=== PATIENT | female | born 1995 | race American Indian/Alaskan Native ===

== ENCOUNTER 2017-02-04 20:54 | Emergency (ER) | payer SELFPAY ==
[2017-02-04 22:08] VITALS: BP 109/74
[2017-02-04 22:44] LABS: Basophils % (Auto) 0.3 % (0.0-1.8); Eosinophils % (Auto) 0.6 % (0.0-4.3); Hemoglobin 14.2 gm/dl (10.1-14.3); Mean Corpuscular HGB Conc 33 % (30-34); Mean Corpuscular Hemoglobin 29 pg (28-32); Mean Corpuscular Volume 88 fl (79-97); Platelet Count 216 K/mm3 (140-440); Red Blood Count 4.87 M/mm3 (3.65-5.03); Red Cell Distribution Width 14.3 % (13.2-15.2); White Blood Count 10.9 K/mm3 (4.5-11.0)
[2017-02-04 22:56] LABS: Bilirubin,Urine NEG (Negative); Blood,Urine NEG (Negative); Ketones,Urine NEG (Negative); Leukocyte Esterase,Urine NEG (Negative); Mucus,Urine 1+ /HPF; Nitrite,Urine NEG (Negative); Protein,Urine <15 mg/dL mg/dL (Negative)
[2017-02-04 23:06] LABS: Anion Gap 17 mmol/L; BUN/Creatinine Ratio 17.14; Blood Urea Nitrogen 12 mg/dL (7-17); Carbon Dioxide 23 mmol/L (22-30); Chloride 100.9 mmol/L (98-107); Glucose 88 mg/dL (65-100); Potassium 3.9 mmol/L (3.6-5.0); Sodium 137 mmol/L (137-145)
== END 2017-02-04 23:33 | disposition left against medical advice (07) ==
LOC: ED 20:54
DX: R51 Headache (principal); M54.5 Low back pain; Z53.21 Procedure and treatment not carried out due to patient leaving prior to being seen by health care provider
CPT/HCPCS: 36415; 80048; 81001; 81025; 82962; 85025; 93005; 93010

== ENCOUNTER 2017-04-10 10:46 | Emergency (ER) | payer SELFPAY ==
[2017-04-10 11:02] VITALS: BP 118/94
[2017-04-10] MEDS ORDERED: NACL 0.9% 1000 ML 1,000 ML IV ONE (12:25)
[2017-04-10 12:40] LABS: Bilirubin,Urine NEG (Negative); Blood,Urine SM (Negative); Ketones,Urine TR mg/dL (Negative); Leukocyte Esterase,Urine MOD (Negative); Mucus,Urine 1+ /HPF; Nitrite,Urine NEG (Negative)
[2017-04-10 12:45] LABS: WBC,Urine > 182.0 /HPF (0.0-6.0)
[2017-04-10] MEDS ORDERED: ROCEPHIN/NS 1 GM/50 ML 1 GM/50 ML BAG IV ONE (13:01)
--- NOTE | 2017-04-10 13:06 | Emergency Department Report ---
ED General Adult HPI - General Chief complaint: Upper Respiratory Infection Stated complaint: ODETTE/CONGESTION/WEAK/VOMITING Time Seen by Provider: 04/10/17 12:14 Source: patient Mode of arrival: Ambulatory Limitations: No Limitations - History of Present Illness Initial comments: PT has multiple complaints. PT states yesterday she started to feel sick. PT states she had discomfort urinating and her mother told her it was because she drank too much soda at the family reunion. PT states that her mother told her to drink more cranberry juice. PT reports dysuria today and urinary retention. PT also c/o sinus congestion, pressure, stuffy nose, abd pain, headache and states she has been vomiting and having L flank pain. PT states she took Tylenol at 0600 for her symptoms but no improvement. MD Complaint: L flank pain -: Gradual, days(s) (2) Location: face (sinus, nose ), abdomen (L flank) Severity scale (0 -10): 10 Quality: constant Consistency: constant Improves with: none Worsens with: eating, other (urination) Associated Symptoms: cough, fever/chills, headaches, loss of appetite, malaise, nausea/vomiting, weakness (generalized ). denies: syncope - Related Data Home Medications Medication Instructions Recorded Confirmed Last Taken Valtrex 1 mg PO DAILY 12/02/15 12/02/15 12/02/15 10:00 1 Previous Rx's Medication Instructions Recorded Last Taken Type Ibuprofen [Motrin] 600 mg PO Q8H PRN #15 tablet 04/10/17 Unknown Rx Nitrofurantoin [place]/M-Cryst 100 mg PO Q12HR #14 capsule 04/10/17 Unknown Rx [Macrobid CAP] Ondansetron [Zofran Odt] 4 mg PO Q8HR PRN #10 tab.rapdis 04/10/17 Unknown Rx Phenazopyridine [Pyridium] 200 mg PO TID PRN #5 tab 04/10/17 Unknown Rx Allergies Allergy/AdvReac Type Severity Reaction Status Date / Time azithromycin Allergy Rash Verified 06/01/15 11:38 ED Review of Systems ROS: Stated complaint: ODETTE/CONGESTION/WEAK/VOMITING Other details as noted in HPI Comment: All other systems reviewed and negative Constitutional: chills, fever (subjective ) ENT: as per HPI, throat pain, congestion. denies: ear pain Respiratory: cough Cardiovascular: denies: chest pain Gastrointestinal: abdominal pain, nausea, vomiting Genitourinary: dysuria, abnormal menses (last cycle only lasted 4 hours), other (urinary retention ). denies: frequency Neurological: headache ED Past Medical Hx - Past Medical History Previous Medical History?: Yes Hx Hypertension: No Hx Congestive Heart Failure: No Hx Diabetes: No Hx Deep Vein Thrombosis: No Hx Renal Disease: No Hx Sickle Cell Disease: No Hx Headaches / Migraines: Yes Hx Seizures: No Hx Kidney Stones: Yes (when she was ) Hx Asthma: No Hx COPD: No Hx HIV: No Additional medical history: gestational diabetes - Surgical History Past Surgical History?: Yes Additional Surgical History: in 2008 - Family History Family history: no significant - Social History Smoking Status: Never Smoker Substance Use Type: None - Medications Home Medications: Home Medications Medication Instructions Recorded Confirmed Last Taken Type Valtrex 1 mg PO DAILY 12/02/15 12/02/15 12/02/15 10:00 History 1 Ibuprofen [Motrin] 600 mg PO Q8H PRN #15 tablet 04/10/17 Unknown Rx Nitrofurantoin [place]/M-Cryst 100 mg PO Q12HR #14 capsule 04/10/17 Unknown Rx [Macrobid CAP] Ondansetron [Zofran Odt] 4 mg PO Q8HR PRN #10 tab.rapdis 04/10/17 Unknown Rx Phenazopyridine [Pyridium] 200 mg PO TID PRN #5 tab 04/10/17 Unknown Rx ED Physical Exam - General Limitations: No Limitations General appearance: alert, anxious (pt crying ), obese - Head Head exam: Present: atraumatic, normocephalic, normal inspection - Eye Eye exam: Present: PERRL, EOMI, other (pt crying ). Absent: nystagmus, periorbital swelling, periorbital tenderness - ENT ENT exam: Present: normal orophraynx, TM's normal bilaterally, normal external ear exam, other (nasal congestion noted. ) - Neck Neck exam: Present: normal inspection, tenderness. Absent: full ROM, lymphadenopathy - Respiratory Respiratory exam: Present: normal lung sounds bilaterally. Absent: respiratory distress, wheezes, chest wall tenderness - Cardiovascular Cardiovascular Exam: Present: regular rate, normal rhythm, normal heart sounds - GI/Abdominal GI/Abdominal exam: Present: soft, normal bowel sounds. Absent: tenderness, guarding, rebound - Extremities Exam Extremities exam: Present: normal inspection, full ROM - Back Exam Back exam: Present: normal inspection, full ROM, tenderness, CVA tenderness (L) . Absent: CVA tenderness (R), vertebral tenderness - Neurological Exam Neurological exam: Present: alert, oriented X3 - Psychiatric Psychiatric exam: Present: normal affect, normal mood - Skin Skin exam: Present: warm, dry ED Course Vital Signs 04/10/17 11:00 Temperature 97.9 F Pulse Rate 77 Respiratory 18 Rate Blood Pressure 118/94 O2 Sat by Pulse 100 Oximetry - Reevaluation(s) Reevaluation #1: 04/10/17 13:07 PT aware of ua and test. PT aware of plan of care. Reevaluation #2: 04/10/17 15:54 PT aware of lab, xr, and us results. PT aware of plan of care. PT has only received 1/2 L of NS. Will dispo after NS infusion complete. Reevaluation #3: 04/10/17 18:36 PT states she has urge to urinate but could not empty bladder. RN performed bladder scan and she had less than 10mls of urine in bladder. PT aware of dx and plan of care. Reevaluation #4: 04/10/17 18:40 pt tolerating po fluids - Pulse Oximetry Interpretation Digit-Finger Initial Pulse Oximetry Readin Actions Taken: none ED Medical Decision Making - Lab Data Result diagrams: 04/10/17 12:34 04/10/17 12:34 Laboratory Results - last 24 hr 04/10/17 04/10/17 04/10/17 11:27 12:34 12:34 WBC 9.3 RBC 5.02 Hgb 14.8 H Hct 44.5 H MCV 89 MCH 30 MCHC 33 RDW 13.5 Plt Count 190 Lymph % (Auto) 17.9 [place] % (Auto) 8.0 H Eos % (Auto) 0.4 Baso % (Auto) 0.4 Lymph # 1.7 [place] # 0.7 Eos # 0.0 Baso # 0.0 Seg Neutrophils % 73.3 H Seg Neutrophils # 6.8 Sodium 139 Potassium 3.7 Chloride 101.5 Carbon Dioxide 20 L Anion Gap 21 BUN 13 Creatinine 0.7 Estimated GFR > 60 BUN/Creatinine Ratio 18.57 Glucose 75 Calcium 9.3 Total Bilirubin 0.50 AST 17 ALT 21 Alkaline Phosphatase 112 Total Protein 8.0 Albumin 4.3 Albumin/Globulin Ratio 1.2 Lipase 18 Urine Color Yellow Urine Turbidity Slightly-cloudy Urine pH 6.0 Ur Specific [place] 1.020 Urine Protein 30 mg/dl Urine Glucose (UA) Neg Urine Ketones Tr Urine Blood Sm Urine Nitrite Neg Ur Reducing Substances Not Reportable Urine Bilirubin Neg Urine Ictotest Not Reportable Urine Urobilinogen 2.0 Ur Leukocyte Esterase Mod Urine WBC (Auto) > 182.0 H Urine RBC (Auto) 38.0 U Epithel Cells (Auto) 11.0 Urine Mucus 1+ Urine HCG, Qual Negative - Radiology Data Radiology results: report reviewed CXR - Nap US renal - NAP - Differential Diagnosis uti, , influeza. strep, pna Critical Care Time: No Critical care attestation.: If time is entered above; I have spent that time in minutes in the direct care of this critically ill patient, excluding procedure time. ED Disposition Clinical Impression: Nausea, URI with cough and congestion UTI (urinary tract infection) Qualifiers: Urinary tract infection type: site unspecified Hematuria presence: with hematuria Qualified Code(s): N39.0 - Urinary tract infection, site not specified Disposition: TO HOME OR SELFCARE Is pt being admited?: No Does the pt Need Aspirin: No Condition: Stable Instructions: Urinary Tract Infection in Women (ED), Upper Respiratory Infection (ED) Additional Instructions: Finish all of your antibiotics Follow up with PCP in 2 days IF your back pain worsens, you are unable to tolerate your antibiotics, or you feel worse, return to the ED for re-evaluation Prescriptions: Ibuprofen [Motrin] 600 mg PO Q8H PRN #15 tablet PRN Reason: Pain Nitrofurantoin [place]/M-Cryst [Macrobid CAP] 100 mg PO Q12HR #14 capsule Ondansetron [Zofran Odt] 4 mg PO Q8HR PRN #10 tab.rapdis PRN Reason: Nausea Phenazopyridine [Pyridium] 200 mg PO TID PRN #5 tab PRN Reason: Pain Referrals: PRIMARY MD LISA [Primary Care Provider] - 3-5 Days TWAN BARRERA MD [Staff Physician] - 3-5 Days Forms: Work/School Release Form(ED) Time of Disposition: 18:39
[2017-04-10] MEDS ORDERED: MORPHINE IV ONE (13:09)
[2017-04-10] MEDS ORDERED: ZOFRAN IV ONE (13:09)
[2017-04-10 13:12] LABS: Basophils % (Auto) 0.4 % (0.0-1.8); Eosinophils % (Auto) 0.4 % (0.0-4.3); Hematocrit 44.5 % (30.3-42.9); Hemoglobin 14.8 gm/dl (10.1-14.3); Mean Corpuscular HGB Conc 33 % (30-34); Mean Corpuscular Hemoglobin 30 pg (28-32); Mean Corpuscular Volume 89 fl (79-97); Platelet Count 190 K/mm3 (140-440); Red Blood Count 5.02 M/mm3 (3.65-5.03); Red Cell Distribution Width 13.5 % (13.2-15.2); White Blood Count 9.3 K/mm3 (4.5-11.0)
[2017-04-10 13:33] LABS: Alanine Aminotransferase 21 units/L (7-56); Albumin 4.3 g/dL (3.9-5); Albumin/Globulin Ratio 1.2 %; Alkaline Phosphatase 112 units/L (35-129); Anion Gap 21 mmol/L; BUN/Creatinine Ratio 18.57; Blood Urea Nitrogen 13 mg/dL (7-17); Calcium 9.3 mg/dL (8.4-10.2); Carbon Dioxide 20 mmol/L (22-30); Chloride 101.5 mmol/L (98-107); Glucose 75 mg/dL (65-100); Lipase 18 units/L (13-60); Potassium 3.7 mmol/L (3.6-5.0); Sodium 139 mmol/L (137-145)
--- NOTE | 2017-04-10 13:49 | XRay Report ---
ROUTINE CHEST, TWO VIEWS: HISTORY: Cough. The trachea, heart, mediastinal contour, lung humphrey and bony thorax are unremarkable. IMPRESSION: Unremarkable chest x-ray.
--- NOTE | 2017-04-10 15:12 | Ultrasound Report ---
ULTRASOUND RENAL BILATERAL HISTORY: Left flank pain, UTI. TECHNIQUE: transabdominal ultrasound with color Doppler interrogation. FINDINGS: The right kidney measures 11.5 x 3.9 x 5.5cm. Right renal cortex: 1.0cm. The left kidney measures 11.4 x 4.5 x 5.9cm. Left renal cortex: 1.2cm. Scans of the kidneys show normal renal contours. There is normal central calyceal clustering and good preservation of the cortical thickness. There is no evidence of mass or hydronephrosis. The views of the bladder and the region of the ureters appear normal. IMPRESSION: Unremarkable renal ultrasound.
[2017-04-10] MEDS ORDERED: TORADOL IV ONE (15:52)
[2017-04-10] MEDS ORDERED: NACL 0.9% 1000 ML 1,000 ML ONE (16:02)
[2017-04-10] MEDS ORDERED: PYRIDIUM PO ONE (18:13)
== END 2017-04-10 19:07 | disposition home or self-care (01) ==
LOC: ED 10:46
DX: J06.9 Acute upper respiratory infection, unspecified (principal); R09.81 Nasal congestion; R11.0 Nausea; N39.0 Urinary tract infection, site not specified; G43.909 Migraine, unspecified, not intractable, without status migrainosus; Z88.1 Allergy status to other antibiotic agents
CPT/HCPCS: 36415; 71020; 76770; 80053; 81001; 81025; 83690; 85025; 87086; 87116; 87400; 87430; 96365; 96375; 99284; J0696; J1885; J2270; J2405; J7030

== ENCOUNTER 2017-07-08 07:57 | Emergency (ER) | payer OTHER ==
[2017-07-08 09:15] LABS: Basophils % (Auto) 0.4 % (0.0-1.8); Eosinophils % (Auto) 0.9 % (0.0-4.3); Hemoglobin 13.4 gm/dl (10.1-14.3); Mean Corpuscular HGB Conc 34 % (30-34); Mean Corpuscular Hemoglobin 30 pg (28-32); Mean Corpuscular Volume 88 fl (79-97); Platelet Count 236 K/mm3 (140-440); Red Blood Count 4.53 M/mm3 (3.65-5.03); Red Cell Distribution Width 14.1 % (13.2-15.2); White Blood Count 8.7 K/mm3 (4.5-11.0)
--- NOTE | 2017-07-08 10:07 | Emergency Department Report ---
ED Female HPI - General Chief complaint: Fall Stated complaint: FELL AT WORK, , SPOTTING Time Seen by Provider: 07/08/17 09:31 Source: patient Mode of arrival: Ambulatory Limitations: No Limitations - History of Present Illness MD Complaint: vaginal bleeding -: Last night - Related Data Home Medications Medication Instructions Recorded Confirmed Last Taken Valtrex 1 mg PO DAILY 12/02/15 12/02/15 12/02/15 10:00 1 Previous Rx's Medication Instructions Recorded Last Taken Type Ibuprofen [Motrin] 600 mg PO Q8H PRN #15 tablet 04/10/17 Unknown Rx Nitrofurantoin [place]/M-Cryst 100 mg PO Q12HR #14 capsule 04/10/17 Unknown Rx [Macrobid CAP] Ondansetron [Zofran Odt] 4 mg PO Q8HR PRN #10 tab.rapdis 04/10/17 Unknown Rx Phenazopyridine [Pyridium] 200 mg PO TID PRN #5 tab 04/10/17 Unknown Rx Acetaminophen [Acetaminophen TAB] 500 mg PO Q6HR PRN #25 tablet 07/08/17 Unknown Rx Allergies Allergy/AdvReac Type Severity Reaction Status Date / Time azithromycin Allergy Rash Verified 07/08/17 08:41 pomegranate Allergy Swelling Verified 07/08/17 08:41 ED Review of Systems ROS: Stated complaint: FELL AT WORK, , SPOTTING Other details as noted in HPI ED Past Medical Hx - Past Medical History Hx Hypertension: No Hx Congestive Heart Failure: No Hx Diabetes: No Hx Deep Vein Thrombosis: No Hx Renal Disease: No Hx Sickle Cell Disease: No Hx Headaches / Migraines: Yes Hx Seizures: No Hx Kidney Stones: Yes (when she was ) Hx Asthma: No Hx COPD: No Hx HIV: No Additional medical history: gestational diabetes / PRE ECLAMPSIA - Surgical History Additional Surgical History: in 2008 - Social History Smoking Status: Current Every Day Smoker Substance Use Type: None - Medications Home Medications: Home Medications Medication Instructions Recorded Confirmed Last Taken Type Valtrex 1 mg PO DAILY 12/02/15 12/02/15 12/02/15 10:00 History 1 Ibuprofen [Motrin] 600 mg PO Q8H PRN #15 tablet 04/10/17 Unknown Rx Nitrofurantoin [place]/M-Cryst 100 mg PO Q12HR #14 capsule 04/10/17 Unknown Rx [Macrobid CAP] Ondansetron [Zofran Odt] 4 mg PO Q8HR PRN #10 tab.rapdis 04/10/17 Unknown Rx Phenazopyridine [Pyridium] 200 mg PO TID PRN #5 tab 04/10/17 Unknown Rx Acetaminophen [Acetaminophen TAB] 500 mg PO Q6HR PRN #25 tablet 07/08/17 Unknown Rx ED Physical Exam - General Limitations: No Limitations ED Course Vital Signs 07/08/17 08:44 Temperature 97.8 F Pulse Rate 68 Respiratory 18 Rate Blood Pressure 113/49 O2 Sat by Pulse 98 Oximetry ED Medical Decision Making - Lab Data Result diagrams: 07/08/17 08:50 Critical care attestation.: If time is entered above; I have spent that time in minutes in the direct care of this critically ill patient, excluding procedure time. ED Disposition Clinical Impression: Vaginal bleeding in Abdominal pain Qualifiers: Abdominal location: generalized Qualified Code(s): R10.84 - Generalized abdominal pain Fall Qualifiers: Encounter type: initial encounter Qualified Code(s): W19.XXXA - Unspecified fall, initial encounter Disposition: TO HOME OR SELFCARE Is pt being admited?: No Does the pt Need Aspirin: No Condition: Stable Instructions: Threatened Miscarriage (ED), (ED) Prescriptions: Acetaminophen [Acetaminophen TAB] 500 mg PO Q6HR PRN #25 tablet PRN Reason: Pain Referrals: [facility] [Provider Group] - 3-5 Days [facility] [Provider Group] - 3-5 Days [facility] [Outside] - 3-5 Days [facility] [Outside] - 3-5 Days Forms: Work/School Release Form(ED) Time of Disposition: 12:42
[2017-07-08 10:52] LABS: Bilirubin,Urine NEG (Negative); Blood,Urine NEG (Negative); Ketones,Urine NEG (Negative); Leukocyte Esterase,Urine NEG (Negative); Nitrite,Urine NEG (Negative); Protein,Urine <15 mg/dL mg/dL (Negative); Urobilinogen,Urine < 2.0 mg/dL (<2.0); WBC,Urine < 1.0 /HPF (0.0-6.0)
--- NOTE | 2017-07-08 11:05 | Ultrasound Report ---
Pelvic and transvaginal sonography: History: Vaginal bleeding. 6 weeks. Findings: Uterus measures 8.5 x 6.1 x 6.3 cm. Single intrauterine gestation is noted. The gestational sac diameter is 18.7 mm corresponding to 6 weeks and 6 days of gestation. Single yolk sac is identified however no pole is seen. Subchorionic bleed is noted measuring 0.4 x 0.1 x 0.5 cm. Right ovary 3.8 x 2.3 x 2.1 cm. Complex cyst in the right ovary measures 2.1 cm and a simple cyst measures 1.1 cm. Left ovary 3.1 x 1.9 x 1.6 cm. No mass. Impression: Single intrauterine gestational sac with yolk sac noted. Small subchorionic bleed measuring 0.4 x 0.1 x 0.5 cm
[2017-07-08] MEDS ORDERED: TYLENOL PO ONE (12:40)
[2017-07-08 13:48] VITALS: BP 120/71
== END 2017-07-08 13:00 | disposition home or self-care (01) ==
LOC: ED 07:57
DX: O9A.219 Injury, poisoning and certain other consequences of external causes complicating pregnancy, unspecified trimester (principal); Z3A.00 Weeks of gestation of pregnancy not specified; R10.84 Generalized abdominal pain; W18.30XA Fall on same level, unspecified, initial encounter; Y93.9 Activity, unspecified; Y92.9 Unspecified place or not applicable; Y99.9 Unspecified external cause status
CPT/HCPCS: 36415; 76801; 76817; 81001; 84702; 85025

== ENCOUNTER 2017-08-29 15:37 | Emergency (ER) | payer MEDICAID, OTHER ==
[2017-08-29] MEDS ORDERED: TYLENOL PO ONE (16:16)
[2017-08-29] MEDS ORDERED: ZOFRAN ODT PO ONE (16:16)
--- NOTE | 2017-08-29 16:16 | Emergency Department Report ---
Chief Complaint: Vaginal Bleeding Stated Complaint: ABD PAIN, SPOTTING AND Time Seen by Provider: 08/29/17 16:11 - [facility] History of Present Illness: Patient is a 22-year-old female presents to ED at approximately 15 weeks' gestation who receives care [facility] presents for vaginal spotting 2 days. Patient also states that she's got a call from the health department stating that she has latent syphilis treated. Patient states she was inadequately treated her [facility] and was told she also had Chlamydia but was not treated. - ROS Review of Systems: As noted in HPI - Exam Vital Signs: Vital Signs 08/29/17 15:45 Temperature 98.2 F Pulse Rate 69 Respiratory 16 Rate Blood Pressure 99/60 O2 Sat by Pulse 99 Oximetry Physical Exam: GENERAL: Alert and oriented x3, no apparent distress, Normal Gait, atraumatic. . ABDOMEN: Positive bowel sounds, soft, and non-distended. Nontender to palpation on all Quadrants, NO CVA tenderness. SKIN: Warm and dry, No lesions, No ulceration or induration present. MSE screening note: Focused history and physical exam performed. Due to findings the following was ordered: ED Medical Decision Making - Lab Data Result diagrams: 08/29/17 16:29 - Medical Decision Making 19-year-old female in no acute distress Vaginal bleed protocol ordered. OB ultrasound ordered Patient to receive STD testing and one dose of Bicillin Patient to receive the rest of her doses at her [facility] Patient to be seen by ED physician. ED Disposition for MSE Condition: Stable
[2017-08-29 16:45] LABS: Basophils % (Auto) 0.5 % (0.0-1.8); Eosinophils % (Auto) 0.1 % (0.0-4.3); Hematocrit 41.2 % (30.3-42.9); Hemoglobin 13.5 gm/dl (10.1-14.3); Mean Corpuscular HGB Conc 33 % (30-34); Mean Corpuscular Hemoglobin 30 pg (28-32); Mean Corpuscular Volume 91 fl (79-97); Platelet Count 192 K/mm3 (140-440); Red Cell Distribution Width 14.4 % (13.2-15.2); White Blood Count 12.7 K/mm3 (4.5-11.0)
[2017-08-29 17:46] LABS: Bilirubin,Urine NEG (Negative); Blood,Urine NEG (Negative); Ketones,Urine NEG (Negative); Leukocyte Esterase,Urine NEG (Negative); Nitrite,Urine NEG (Negative); Protein,Urine <15 mg/dL mg/dL (Negative); Urobilinogen,Urine < 2.0 mg/dL (<2.0)
--- NOTE | 2017-08-29 17:53 | Ultrasound Report ---
FINAL REPORT EXAM: US OB \T\lt; = 14 WEEKS FETUS HISTORY: vag spotting TECHNIQUE: Ultrasound obstetrical transabdominal PRIORS: No prior exam is submitted for comparison FINDINGS: Single live intrauterine gestation present. Leando-rump length 7.52 centimeters corresponding to estimated gestational age 13 weeks 4 days. Based on today's exam estimated date of delivery is March 02, 2018 cardiac activity is present with heart rate of 163 beats per minute No myometrial abnormality identified Right ovary is 2.4 x 2.0 x 2.5 centimeters Left ovary is 2.3 x 1.5 x 1.6 centimeters. No abnormal adnexal mass identified No free fluid is identified within the pelvis IMPRESSION: Single live intrauterine gestation estimated at 13 weeks 4 days
[2017-08-29 18:26] LABS: Mucus,Urine 1+ /HPF
[2017-08-29 19:36] VITALS: BP 107/57
--- NOTE | 2017-08-29 19:41 | Emergency Department Report ---
ED Female HPI - General Chief complaint: Vaginal Bleeding Stated complaint: ABD PAIN, SPOTTING AND Time Seen by Provider: 08/29/17 16:11 Source: patient Mode of arrival: Ambulatory Limitations: No Limitations - History of Present Illness Initial comments: Patient is 22 years old female 5 para 4, complaining of lower abdominal pain and vaginal bleeding started today, patient is 14 weeks . Denied any vaginal discharge no other symptoms. No urinary symptoms. MD Complaint: vaginal bleeding -: days(s) Quality: cramping Are you Now?: Yes Associated Symptoms: vaginal bleeding - Related Data Home Medications Medication Instructions Recorded Confirmed Last Taken Valtrex 1 mg PO DAILY 12/02/15 12/02/15 12/02/15 10:00 1 Previous Rx's Medication Instructions Recorded Last Taken Type Ibuprofen [Motrin] 600 mg PO Q8H PRN #15 tablet 04/10/17 Unknown Rx Nitrofurantoin [place]/M-Cryst 100 mg PO Q12HR #14 capsule 04/10/17 Unknown Rx [Macrobid CAP] Ondansetron [Zofran Odt] 4 mg PO Q8HR PRN #10 tab.rapdis 04/10/17 Unknown Rx Phenazopyridine [Pyridium] 200 mg PO TID PRN #5 tab 04/10/17 Unknown Rx Acetaminophen [Acetaminophen TAB] 500 mg PO Q6HR PRN #25 tablet 07/08/17 Unknown Rx Allergies Allergy/AdvReac Type Severity Reaction Status Date / Time azithromycin Allergy Rash Verified 08/29/17 15:50 pomegranate Allergy Swelling Verified 08/29/17 15:50 ED Review of Systems ROS: Stated complaint: ABD PAIN, SPOTTING AND Other details as noted in HPI Comment: All other systems reviewed and negative Constitutional: denies: chills, fever Respiratory: denies: cough, orthopnea, shortness of breath Gastrointestinal: abdominal pain. denies: nausea, vomiting, diarrhea Musculoskeletal: denies: back pain Neurological: denies: headache, weakness, numbness, paresthesias ED Past Medical Hx - Past Medical History Previous Medical History?: Yes Hx Hypertension: No Hx Congestive Heart Failure: No Hx Diabetes: No Hx Deep Vein Thrombosis: No Hx Renal Disease: No Hx Sickle Cell Disease: No Hx Headaches / Migraines: Yes Hx Seizures: No Hx Kidney Stones: Yes Hx Asthma: No Hx COPD: No Hx HIV: No Additional medical history: gestational diabetes / PRE ECLAMPSIA - Surgical History Past Surgical History?: Yes Additional Surgical History: in 2009 - Social History Smoking Status: Never Smoker Substance Use Type: None - Medications Home Medications: Home Medications Medication Instructions Recorded Confirmed Last Taken Type Valtrex 1 mg PO DAILY 12/02/15 12/02/15 12/02/15 10:00 History 1 Ibuprofen [Motrin] 600 mg PO Q8H PRN #15 tablet 04/10/17 Unknown Rx Nitrofurantoin [place]/M-Cryst 100 mg PO Q12HR #14 capsule 04/10/17 Unknown Rx [Macrobid CAP] Ondansetron [Zofran Odt] 4 mg PO Q8HR PRN #10 tab.rapdis 04/10/17 Unknown Rx Phenazopyridine [Pyridium] 200 mg PO TID PRN #5 tab 04/10/17 Unknown Rx Acetaminophen [Acetaminophen TAB] 500 mg PO Q6HR PRN #25 tablet 07/08/17 Unknown Rx ED Physical Exam - General Limitations: No Limitations General appearance: alert, in no apparent distress - Head Head exam: Present: atraumatic, normocephalic, normal inspection - Eye Eye exam: Present: normal appearance - ENT ENT exam: Present: normal exam - Neck Neck exam: Present: normal inspection - Respiratory Respiratory exam: Present: normal lung sounds bilaterally. Absent: respiratory distress, wheezes, rales, rhonchi, stridor, chest wall tenderness - Cardiovascular Cardiovascular Exam: Present: regular rate, normal rhythm, normal heart sounds - GI/Abdominal GI/Abdominal exam: Present: soft, normal bowel sounds. Absent: distended, tenderness, guarding, rebound, rigid, mass, bruit, pulsatile mass - Extremities Exam Extremities exam: Present: normal inspection, normal capillary refill. Absent: tenderness - Back Exam Back exam: Present: normal inspection. Absent: CVA tenderness (R), CVA tenderness (L) - Neurological Exam Neurological exam: Present: alert, oriented X3, CN II-XII intact, normal gait - Skin Skin exam: Present: warm, intact, normal color ED Course Vital Signs 08/29/17 08/29/17 08/29/17 15:45 16:50 18:05 Temperature 98.2 F 98.5 F Pulse Rate 69 72 Respiratory 16 16 20 Rate Blood Pressure 99/60 Blood Pressure 107/57 [Left] O2 Sat by Pulse 99 100 Oximetry 08/29/17 19:17 Temperature Pulse Rate Respiratory 20 Rate Blood Pressure Blood Pressure [Left] O2 Sat by Pulse Oximetry - Reevaluation(s) Reevaluation #1: 08/29/17 19:40 Patient stated that her abdominal pain is resolved and she does not have any more vaginal bleeding. ED Medical Decision Making - Lab Data Result diagrams: 08/29/17 16:29 - Radiology Data Radiology results: report reviewed Pelvic/ ultrasound showed a 13 weeks and 5 days intrauterine viable single Critical care attestation.: If time is entered above; I have spent that time in minutes in the direct care of this critically ill patient, excluding procedure time. ED Disposition Clinical Impression: Abdominal pain affecting , Vaginal bleeding during , antepartum Disposition: DC-01 TO HOME OR SELFCARE Is pt being admited?: No Condition: Stable Instructions: (ED) Referrals: PRIMARY CARE, [Primary Care Provider] - 3-5 Days
== END 2017-08-29 20:00 | disposition home or self-care (01) ==
LOC: ED 15:37
DX: O46.91 Antepartum hemorrhage, unspecified, first trimester (principal); O26.891 Other specified pregnancy related conditions, first trimester; R10.30 Lower abdominal pain, unspecified; Z88.1 Allergy status to other antibiotic agents; Z91.018 Allergy to other foods; Z3A.13 13 weeks gestation of pregnancy
CPT/HCPCS: 36415; 76801; 81001; 84702; 84703; 85025; 86850; 86900; 86901; Q0162

== ENCOUNTER 2017-10-21 22:00 | Outpatient (CLI) | payer MEDICAID ==
[2017-10-21 22:16] VITALS: BP 110/60
[2017-10-21] MEDS ORDERED: LACTATED RINGERS 500 ML IV ONE (22:55)
[2017-10-22 00:43] LABS: Bilirubin,Urine NEG (Negative); Blood,Urine NEG (Negative); Color,Urine Yellow (Yellow); Mucus,Urine FEW /HPF; Nitrite,Urine NEG (Negative); Protein,Urine <15 mg/dL mg/dL (Negative); Urobilinogen,Urine < 2.0 mg/dL (<2.0)
== END 2017-10-22 01:29 | disposition home or self-care (01) ==
LOC: TRG 22:00
PROVIDERS: ATTEND Obstetrics & Gynecology
DX: O26.892 Other specified pregnancy related conditions, second trimester (principal); R51 Headache; Z3A.22 22 weeks gestation of pregnancy
CPT/HCPCS: 59025; 81001

== ENCOUNTER 2018-01-10 01:57 | Outpatient (CLI) | payer MEDICAID ==
[2018-01-10] MEDS ORDERED: LACTATED RINGERS 1,000 ML IV ONE (02:05)
[2018-01-10] MEDS ORDERED: NITRATEST PAPER MC ONE (02:14)
[2018-01-10 02:19] VITALS: BP 109/65
[2018-01-10 03:14] LABS: Amorphous Crystals,Urine Few; Bacteria,Urine 1+ /HPF (Negative); Bilirubin,Urine NEG (Negative); Blood,Urine NEG (Negative); Color,Urine Yellow (Yellow); Mucus,Urine FEW /HPF; Protein,Urine <15 mg/dL mg/dL (Negative); Urobilinogen,Urine < 2.0 mg/dL (<2.0)
--- NOTE | 2018-01-10 03:40 | Ultrasound Report ---
FINAL REPORT EXAM: US OB LIMITED HISTORY: leaking fluid COMPARISON: August 2017. TECHNIQUE: Several real-time grayscale and color Doppler images were obtained. FINDINGS: Limited exam for evaluation of CARISSA. CARISSA 22.3 centimeters, within normal limits. heart rate 135 beats per minute. Vertex positioning. IMPRESSION: Limited exam. Normal CARISSA measuring 22.3 centimeters. Single live IUP.
== END 2018-01-10 03:30 | disposition home or self-care (01) ==
LOC: TRG 01:57
PROVIDERS: ATTEND Obstetrics & Gynecology
DX: O42.913 Preterm premature rupture of membranes, unspecified as to length of time between rupture and onset of labor, third trimester (principal); O47.03 False labor before 37 completed weeks of gestation, third trimester; Z3A.32 32 weeks gestation of pregnancy
CPT/HCPCS: 59025; 76815; 81001

== ENCOUNTER 2018-01-22 17:47 | Outpatient (CLI) | payer MEDICAID ==
[2018-01-22 18:35] VITALS: BP 102/67
[2018-01-22] MEDS ORDERED: LACTATED RINGERS 500 ML IV ONE (19:00)
[2018-01-22 19:17] LABS: Bilirubin,Urine NEG (Negative); Blood,Urine NEG (Negative); Color,Urine Yellow (Yellow); Mucus,Urine FEW /HPF; Protein,Urine <15 mg/dL mg/dL (Negative)
== END 2018-01-22 19:43 | disposition home or self-care (01) ==
LOC: TRG 17:47
PROVIDERS: ATTEND Obstetrics & Gynecology
DX: O47.03 False labor before 37 completed weeks of gestation, third trimester (principal); Z3A.36 36 weeks gestation of pregnancy
CPT/HCPCS: 59025; 81001

== ENCOUNTER 2018-01-27 15:13 | Observation (INO) | payer MEDICAID ==
--- NOTE | 2018-01-27 18:02 | Ultrasound Report ---
FINAL REPORT EXAM: US OB BPP WO NON-STRESS HISTORY: fall TECHNIQUE: Biophysical profile obstetrical ultrasound PRIORS: Pelvic ultrasound 01/10/2018 FINDINGS: LMP 05/12/2017 clinical Age: 37 w 1d LMP EDC 02/16/2018 Biophysical profile scoring 0 movement 2 tone 0 breathing 2 fluid 4/8 overall score Presentation: Cephalic Placenta location: Anterior Cardiac motion: 138 BPM using M-mode doppler Amniotic Fluid Volume: Adequate IMPRESSION: Single intrauterine viable with an approximate age of 37 weeks 1 days. Biophysical profile score is. 4/8
--- NOTE | 2018-01-27 18:05 | Ultrasound Report ---
FINAL REPORT EXAM: US OB LIMITED HISTORY: R/O abruption status post fall and evaluate well-being TECHNIQUE: Limited obstetrical ultrasound PRIORS: Ultrasound pelvis 01/10/2018 FINDINGS: LMP: 05/12/2017 clinical Age: 37 W 1 D LMP EDC 02/16/2018 Presentation: Cephalic Activity: Monitored Placental location: Anterior with no evidence for placental abruption. Placental grade: 0 Cardiac motion: 138 BPM using M-mode doppler Amniotic Fluid Volume: Adequate IMPRESSION: Single intrauterine viable with an approximate age of 37 weeks 1 days. No evidence for placental abruption.
[2018-01-27 18:53] LABS: Hematocrit 35.8 % (30.3-42.9); Hemoglobin 11.8 gm/dl (10.1-14.3); Mean Corpuscular HGB Conc 33 % (30-34); Mean Corpuscular Hemoglobin 30 pg (28-32); Mean Corpuscular Volume 91 fl (79-97); Platelet Count 193 K/mm3 (140-440); Red Blood Count 3.94 M/mm3 (3.65-5.03)
--- NOTE | 2018-01-27 21:07 | Short Stay Summary ---
Short Stay Documentation Date of service: 01/27/18 Narrative H&P: Pt is a 22yo BF EDC 02/16/18; EGA 37 1/7 weeks presents to L&D complaining of abdominal trauma after falling in the bathroom and hitting her abdomen. She did not hit her head, and denies contractions, ROM or bleeding. NST is Reactive , but BPP 4/8. She will therefore be admitted for Observation and continuous monitoring. - History Principal diagnosis: IUP @ 37 1/7 weeks; s/p abdominal trauma H&P: obtained from office Past Medical History: No medical history Past Surgical History: No surgical history Social history: no significant social history, - Allergies and Medications Current Medications: Allergies azithromycin Allergy (Verified 08/29/17 15:50) Rash pomegranate Allergy (Verified 08/29/17 15:50) Swelling Home Medications Medication Instructions Recorded Confirmed Last Taken Type Pnv No.95/Ferrous Fum/Folic AC 1 tab PO DAILY 01/27/18 01/27/18 1 Day Ago History [ Vitamins Tablet] ~01/26/18 - Physical exam General appearance: no acute distress Integumentary: no rash HEENT: Atraumatic Lungs: Clear to auscultation Breasts: deferred Heart: Regular rate Gastrointestinal: normal Female Genitourinary: deferred Rectal Exam: deferred Extremities: no ischemia, No edema Neurological: Normal gait, Normal speech - Hospital course Hospital course: Pt is feeling well without complaints. NST remained Reactive the entire time. Repeat BPP 6/8 making her BPP 8/10. Discussed with Dr Boswell (Perinatologist) - okay for pt to be discharged home. She has an OB appointment tomorrow . - Disposition Condition at discharge: Good Disposition: DC-01 TO HOME OR SELFCARE - Discharge Diagnoses (1) 37 or more weeks gestation of Status: Acute (2) Status post fall Status: Resolved Short Stay Discharge Plan Activity: no restrictions, fall precautions Diet: regular Follow up with: JENNI HERRERA MD [Primary Care Provider] - 48 Hours
[2018-01-27] MEDS ORDERED: AMBIEN PO PRN (21:08)
[2018-01-27] MEDS ORDERED: COLACE PO PRN (21:08)
[2018-01-27] MEDS ORDERED: TYLENOL PO PRN (21:08)
[2018-01-27] MEDS: NORCO 5/325 PO PRN (22:18)
[2018-01-28] MEDS: NORCO 5/325 PO PRN (04:39)
[2018-01-28] MEDS ORDERED: PRENATAL VITAMIN PO SCH (10:00)
--- NOTE | 2018-01-28 11:11 | Ultrasound Report ---
ULTRASOUND BIOPHYSICAL PROFILE: History: Fall during Technique: Transabdominal ultrasound with Doppler interrogation. 2 - breathing movements 2 - movements 2 - posture and tone 2 - Qualitative amniotic fluid volume 8 - TOTAL SCORE OF POSSIBLE 8 Heart Rate (bpm) 141
[2018-01-28 11:37] VITALS: BP 118/82
== END 2018-01-28 13:44 | disposition home or self-care (01) ==
LOC: TRG 15:13 → LD 17:47
PROVIDERS: ADMIT Obstetrics & Gynecology; ATTEND Obstetrics & Gynecology
DX: O9A.213 Injury, poisoning and certain other consequences of external causes complicating pregnancy, third trimester (principal); S39.81XA Other specified injuries of abdomen, initial encounter; W18.39XA Other fall on same level, initial encounter; Y92.012 Bathroom of single-family (private) house as the place of occurrence of the external cause; Y93.89 Activity, other specified; Y99.8 Other external cause status; Z3A.37 37 weeks gestation of pregnancy
CPT/HCPCS: 36415; 76815; 76819; 85027; 86592; 86850; 86900; 86901; G0378

== ENCOUNTER 2018-01-29 14:10 | Outpatient (CLI) | payer MEDICAID ==
--- NOTE | 2018-01-29 18:38 | Ultrasound Report ---
FINAL REPORT EXAM: US OB BPP WO NON-STRESS HISTORY: well-being TECHNIQUE: Ultrasound biophysical profile PRIORS: None. FINDINGS: Single live intrauterine gestation is present with heart rate of 133 beats per minute Biophysical profile was performed respiratory motion 2 Body movement 2 tone 2 Amniotic fluid volume 2 Total 05/23 Impression Normal biophysical profile 05/23
== END 2018-01-29 18:30 | disposition home or self-care (01) ==
LOC: TRG 14:10
PROVIDERS: ATTEND Obstetrics & Gynecology
DX: O47.1 False labor at or after 37 completed weeks of gestation (principal); Z3A.37 37 weeks gestation of pregnancy
CPT/HCPCS: 59025; 76819

== ENCOUNTER 2018-01-30 22:34 | Emergency (ER) | payer MEDICAID | END 2018-01-31 01:21 | disposition left against medical advice (07) | LOC: ED 22:34 | DX: J06.9 Acute upper respiratory infection, unspecified (principal); Z53.21 Procedure and treatment not carried out due to patient leaving prior to being seen by health care provider ==

== ENCOUNTER 2018-02-04 20:58 | Outpatient (CLI) | payer MEDICAID ==
[2018-02-04] MEDS ORDERED: VISTARIL ONE (21:55)
[2018-02-04] MEDS ORDERED: VISTARIL PO ONE (21:55)
--- NOTE | 2018-02-04 22:00 | Ultrasound Report ---
FINAL REPORT PROCEDURE: US OB LIMITED TECHNIQUE: Real-time limited sonographic examination was performed for evaluation of size, position, heartbeat, fluid volume for each fetus with image documentation (1 or more fetuses). CPT 48679 HISTORY: vaginal leaking COMPARISON: No prior studies are available for comparison. FINDINGS: Fetus is in a cephalic presentation. Amniotic fluid index is 16.3 centimeters which is within normal limits. Placenta is anterior. There is no previa. Placenta is grade 2. heart rate is 145 beats per minute. IMPRESSION: Normal amniotic fluid.
== END 2018-02-04 22:07 | disposition home or self-care (01) ==
LOC: TRG 20:58 → LD 20:59 → TRG 22:07
PROVIDERS: ATTEND Obstetrics & Gynecology
DX: O47.1 False labor at or after 37 completed weeks of gestation (principal); Z3A.38 38 weeks gestation of pregnancy
CPT/HCPCS: 59025; 76815; Q0177

== ENCOUNTER 2018-02-05 14:05 | Inpatient (IN) | payer MEDICAID ==
--- NOTE | 2018-02-05 14:41 | History and Physical Report ---
History of Present Illness Date of examination: 02/05/18 Date of admission: 02/05/18 14:10 Chief complaint: Leaking fluid since last night History of present illness: Pt is a 22yo BF EDC 02/16/18; EGA 38 3/7 weeks presents from the office complaining of leaking fluid since 8pm 02/04/18. She denies contractions or bleeding. She received care at [facility] since and course was unremarkable. records are available and GBS Positive. Past History Past Medical History: no pertinent history Social history: no significant social history, single - Obstetrical History Expected Date of Delivery: 02/16/18 Actual Gestation: 38 Week(s) 3 Day(s) : 5 Medications and Allergies Allergies Allergy/AdvReac Type Severity Reaction Status Date / Time azithromycin Allergy Rash Verified 08/29/17 15:50 pomegranate Allergy Swelling Verified 08/29/17 15:50 Home Medications Medication Instructions Recorded Confirmed Last Taken Type Pnv No.95/Ferrous Fum/Folic AC 1 tab PO DAILY 01/27/18 01/27/18 1 Day Ago History [ Vitamins Tablet] ~01/26/18 Review of Systems All systems: negative - Obstetrical FHR: category 1 Uterine Contraction Monitor Mode: External Cervical Dilatation: 1 (per nurse) Cervical Effacement Percentage: 50 (per nurse) station: -2 Uterine Contraction Pattern: Irregular Results All other labs normal. Assessment and Plan - Patient Problems (1) 38 weeks gestation of Onset Date: 02/05/18 Current Visit: Yes Status: Acute Plan to address problem: A: IUP @ 38 3/7 weeks SROM +GBS P: Admit to L&D for cervidil/pitocin induction of labor IV Ampicillin
[2018-02-05] MEDS ORDERED: ePHEDrine SULFATE IV PRN (17:30)
[2018-02-05] MEDS ORDERED: BRETHINE SUB-Q PRN (17:30)
[2018-02-05] MEDS ORDERED: MINERAL OIL PO PRN (17:30)
[2018-02-05] MEDS ORDERED: BRETHINE IVP PRN (17:30)
[2018-02-05] MEDS ORDERED: POLYCILLIN/NS 2 GM/100 ML 2 GM/100 ML BAG IV ONE (17:30)
[2018-02-05] MEDS ORDERED: XYLOCAINE 2% INFILTRATI ONE (17:30)
[2018-02-05] MEDS ORDERED: CERVIDIL VG ONE (17:55)
[2018-02-05] MEDS ORDERED: PITOCin/NS 20 UNIT/1000ML DRIP 20 UNITS/1,000 ML BAG IV SCH (18:00)
[2018-02-05] MEDS: LACTATED RINGERS 1,000 ML IV SCH (18:04)
[2018-02-05] MEDS: TYLENOL PO PRN (18:05)
[2018-02-05 18:24] LABS: Hemoglobin 12.5 gm/dl (10.1-14.3); Mean Corpuscular HGB Conc 34 % (30-34); Mean Corpuscular Hemoglobin 31 pg (28-32); Mean Corpuscular Volume 90 fl (79-97); Platelet Count 191 K/mm3 (140-440); Red Cell Distribution Width 13.2 % (13.2-15.2)
[2018-02-05] MEDS ORDERED: BENADRYL IV ONE (21:42)
[2018-02-05] MEDS: AMBIEN PO PRN (22:25)
[2018-02-05] MEDS ORDERED: ZOFRAN IV ONE (23:00)
[2018-02-05] MEDS: SUBLIMAZE IV PRN (23:45)
[2018-02-06] MEDS: SUBLIMAZE IV PRN (03:26)
[2018-02-06] MEDS: LACTATED RINGERS 1,000 ML IV SCH (05:48)
--- NOTE | 2018-02-06 09:03 | Progress Note ---
Assessment and Plan - Patient Problems (1) 38 weeks gestation of Onset Date: 02/05/18 Current Visit: Yes Status: Acute Plan to address problem: A: IUP @ 38 4/7 weeks SROM +GBS P: Continue with pitocin induction of labor IV Ampicillin Subjective - Subjective Date of service: 02/06/18 Principal diagnosis: IUP @ 38 4/7 weeks Interval history: Pt is a 22yo BF EDC 02/16/18; EGA 38 3/7 weeks presented from the office complaining of leaking fluid since 8pm 02/04/18. She was admitted and received cervidil last night, and is bryant irregularly. Patient reports: movement normal, contractions, no new complaints, no vaginal bleeding Objective - Vital Signs Vital Signs: Vital Signs - 12hr 02/05/18 02/06/18 02/06/18 23:00 03:00 03:56 Temperature 97.5 F L 97.8 F Respiratory 18 20 18 Rate 02/06/18 02/06/18 06:04 06:30 Temperature 96.7 F L 97.6 F Respiratory 20 20 Rate - Exam Breasts: deferred Cardiovascular: Regular rate Lungs: Clear to auscultation Abdomen: Present: normal appearance, soft Uterus: Present: normal FHR: category 1 Uterine Contraction Monitor Mode: External Cervical Dilatation: 1 Cervical Effacement Percentage: 50 station: -3 Uterine Contraction Pattern: Irregular Uterine Tone Measurement Phase: Contraction Uterine Contraction Intensity: Mild - Labs Labs: Laboratory Results - last 24 hr 02/05/18 02/05/18 17:45 17:45 WBC 10.6 RBC 4.10 Hgb 12.5 Hct 37.0 MCV 90 MCH 31 MCHC 34 RDW 13.2 Plt Count 191 Blood Type O POSITIVE Antibody Screen Negative
[2018-02-06] MEDS: PITOCin/NS 30 UNIT/500ML 30 UNITS/500 ML BAG IV SCH (11:00)
[2018-02-06] MEDS: AMPICILLIN/NS 1 GM/50 ML 1 GM/50 ML BAG IV SCH (11:15)
--- NOTE | 2018-02-06 17:44 | Progress Note ---
Assessment and Plan - Patient Problems (1) 38 weeks gestation of Onset Date: 02/05/18 Current Visit: Yes Status: Acute Plan to address problem: A: IUP @ 38 3/7 weeks SROM +GBS P: Will stop pitocin and begin cytotec tonight for induction of labor IV Ampicillin Subjective - Subjective Date of service: 02/06/18 Principal diagnosis: IUP @ 38 4/7 weeks Interval history: Pt is a 22yo BF EDC 02/16/18; EGA 38 4/7 weeks presented from the office complaining of leaking fluid since 8pm 02/04/18. She was admitted and received cervidil last night followed by pitocin today, and currently on 30mu/min and is bryant q2-3 mins. Cx still unchanged. Patient reports: movement normal, contractions, no new complaints, no vaginal bleeding Objective - Vital Signs Vital Signs: Vital Signs - 12hr 02/06/18 02/06/18 06:04 06:30 Temperature 96.7 F L 97.6 F Respiratory 20 20 Rate - Exam Cardiovascular: Regular rate Lungs: Clear to auscultation Abdomen: Present: normal appearance, soft FHR: category 1 Uterine Contraction Monitor Mode: External Cervical Dilatation: 1 Cervical Effacement Percentage: 50 station: -3 Uterine Contraction Pattern: Regular Uterine Tone Measurement Phase: Contraction Uterine Contraction Intensity: Mild - Labs Labs: Laboratory Results - last 24 hr 02/05/18 02/05/18 02/05/18 17:45 17:45 17:45 WBC 10.6 RBC 4.10 Hgb 12.5 Hct 37.0 MCV 90 MCH 31 MCHC 34 RDW 13.2 Plt Count 191 RPR Nonreactive Blood Type O POSITIVE Antibody Screen Negative
[2018-02-06] MEDS: TYLENOL PO PRN (22:11)
[2018-02-06] MEDS: ZOFRAN IV PRN (22:11)
[2018-02-07] MEDS: AMBIEN PO PRN (00:05)
[2018-02-07] MEDS: CYTOTEC VG PRN ×3 (00:05→09:24)
[2018-02-07] MEDS: AMPICILLIN/NS 1 GM/50 ML 1 GM/50 ML BAG IV SCH ×5 (00:06→16:36)
[2018-02-07] MEDS: SUBLIMAZE IV PRN ×4 (05:06→11:32)
[2018-02-07] MEDS: LACTATED RINGERS 1,000 ML IV SCH ×3 (09:13→13:03)
--- NOTE | 2018-02-07 11:15 | Progress Note ---
Assessment and Plan - Patient Problems (1) 38 weeks gestation of Onset Date: 02/05/18 Current Visit: Yes Status: Acute Plan to address problem: A: IUP @ 38 5/7 weeks SROM +GBS P: Will continue with cytotec induction of labor IV Ampicillin Expectant vaginal delivery Subjective - Subjective Date of service: 02/07/18 Principal diagnosis: IUP @ 38 5/7 weeks Interval history: Pt is a 22yo BF EDC 02/16/18; EGA 38 5/7 weeks presented from the office complaining of leaking fluid since 8pm 02/04/18. She was admitted and received cervidil followed by pitocin and now cytotec and currently and is bryant q 3-5 mins. Patient reports: movement normal, contractions, no new complaints, no vaginal bleeding Objective - Vital Signs Vital Signs: Vital Signs - 12hr 02/07/18 02/07/18 02/07/18 00:12 05:06 05:08 Temperature 98.4 F 98.8 F Pulse Rate Respiratory 18 16 16 Rate Blood Pressure [Left] O2 Sat by Pulse Oximetry 02/07/18 07:25 Temperature 97.7 F Pulse Rate 88 Respiratory 18 Rate Blood Pressure 112/72 [Left] O2 Sat by Pulse 97 Oximetry - Exam Abdomen: Present: normal appearance, soft Uterus: Present: normal FHR: category 1 Uterine Contraction Monitor Mode: External Cervical Dilatation: 2 Cervical Effacement Percentage: 70 station: -3 Uterine Contraction Pattern: Regular Uterine Tone Measurement Phase: Contraction Uterine Contraction Intensity: Mild - Labs Labs: Laboratory Results - last 24 hr 02/05/18 17:45 RPR Nonreactive
[2018-02-07] MEDS ORDERED: ePHEDrine SULFATE IV PRN (12:34)
[2018-02-07] MEDS ORDERED: NARCAN 2 MG/2 ML IV PRN (12:34)
--- NOTE | 2018-02-07 12:34 | Anesthesia Consultation ---
Anesthesia Consult and Med Hx Date of service: 02/07/18 - Airway Anesthetic Teeth Evaluation: Good ROM Head & Neck: Adequate Mental/Hyoid Distance: Adequate Mallampati Class: Class II Intubation Access Assessment: Probably Good - Pre-Operative Health Status ASA Pre-Surgery Classification: ASA2 Proposed Anesthetic Plan: Epidural, Spinal - Pulmonary Hx Smoking: Yes (10/19 PPD) Hx Asthma: No COPD: No Hx Pneumonia: No - Cardiovascular System Hx Hypertension: No - Central Nervous System Hx Seizures: No Hx Psychiatric Problems: No - Gastrointestinal Hx Gastroesophageal Reflux Disease: No - Endocrine Hx Renal Disease: No Hx End Stage Renal Disease: No Hx Hypothyroidism: No Hx Hyperthyroidism: No - Hematic Hx Anemia: No Hx Sickle Cell Disease: No - Other Systems Hx Alcohol Use: No Hx Substance Use: Yes (MARIJUANA 90 DAYS AGO, denies IV drug use) Hx Obesity: Yes (BMI 35.1)
[2018-02-07] MEDS ORDERED: fentaNYL-BUPIV 2 MCG/ML-0.125% 200 MCG/100 ML BAG EPIDURAL SCH (13:30)
[2018-02-07] MEDS: PITOCin/NS 30 UNIT/500ML 30 UNITS/500 ML BAG IV SCH ×2 (14:53→16:17)
[2018-02-07] MEDS: ZOFRAN IV PRN (16:37)
--- NOTE | 2018-02-07 17:14 | Procedure Note ---
OB Delivery Note - Delivery Date of Delivery: 02/07/18 Surgeon: JENNI HERRERA Estimated blood loss: 100cc - Vaginal Delivery presentation: vertex Delivery position: OA Intrapartum events: PROM->1hr before delivery Delivery induction: cervidil Delivery augmentation: pitocin Delivery monitor: external FHT, internal uterine Route of delivery: Delivery placenta: spontaneous, manual Delivery cord: nuchal cord (x1), 3 umbilical vessels Episiotomy: none Delivery laceration: none Anesthesia: epidural Delivery comments: delivered OA and placed on Mom's chest for [id number] bonding and delayed cord clamping. - A at 1 minute: 8 at 5 minutes: 9 Gender: Male ([id number])
[2018-02-07] MEDS ORDERED: MILK OF MAGNESIA PO PRN (17:18)
[2018-02-07] MEDS ORDERED: ZOFRAN IV PRN (17:18)
[2018-02-07] MEDS ORDERED: TUCKS PAD TP PRN (17:18)
[2018-02-07] MEDS ORDERED: PHENERGAN PR PRN (17:18)
[2018-02-07] MEDS ORDERED: PHENERGAN PO PRN (17:18)
[2018-02-07] MEDS ORDERED: BENADRYL PO PRN (17:18)
[2018-02-07] MEDS ORDERED: DULCOLAX PR PRN (17:18)
[2018-02-07] MEDS ORDERED: LANSINOH TP PRN (17:18)
[2018-02-07] MEDS ORDERED: TYLENOL PO PRN (17:18)
[2018-02-07] MEDS ORDERED: SODIUM CHLORIDE FLUSH SYRINGE 10 ML IV SCH (18:00)
[2018-02-07] MEDS ORDERED: PITOCin/NS 20 UNIT/1000ML DRIP 20 UNITS/1,000 ML BAG IV SCH (18:00)
[2018-02-07] MEDS: MOTRIN PO SCH (20:20)
[2018-02-07] MEDS: FEOSOL PO SCH (22:46)
[2018-02-07] MEDS: NORCO 5/325 PO PRN (22:46)
[2018-02-08] MEDS: MOTRIN PO SCH ×4 (01:27→22:49)
[2018-02-08 05:40] LABS: Hemoglobin 11.4 gm/dl (10.1-14.3)
[2018-02-08] MEDS: NORCO 5/325 PO PRN ×2 (05:53→14:16)
[2018-02-08] MEDS ORDERED: BOOSTRIX IM ONE (06:00)
--- NOTE | 2018-02-08 07:46 | Progress Note ---
Assessment and Plan - Patient Problems (1) 38 weeks gestation of Onset Date: 02/05/18 Current Visit: Yes Status: Resolved (2) (normal spontaneous vaginal delivery) Onset Date: 02/08/18 Current Visit: No Status: Resolved Plan to address problem: A: S/P - PPD #1 Doing well Asymptomatic anemia - stable P: May go home tomorrow. Subjective - Subjective Date of service: 02/08/18 Principal diagnosis: s/p - PPD#1 Interval history: Pt is feeling well without complaints. Bleeding improved. Patient reports: appetite normal, voiding normally, pain well controlled, ambulating normally, no dizzy ambulation, no nauseated : doing well, nursing well Objective - Vital Signs Latest vital signs: Vital Signs Temp Pulse Resp BP BP Pulse Ox 02/08/18 05:53 20 02/08/18 01:27 18 02/08/18 00:04 97.9 F 59 L 20 113/78 96 02/07/18 22:46 18 02/07/18 20:20 18 02/07/18 20:07 98.5 F 75 20 117/63 97 02/07/18 18:45 86 20 114/63 02/07/18 18:25 79 20 121/84 02/07/18 18:10 78 20 121/87 02/07/18 17:50 71 20 118/77 02/07/18 17:35 80 18 125/81 02/07/18 17:20 98.5 F 81 18 123/78 99 02/07/18 16:13 97.9 F 66 18 113/65 99 02/07/18 12:56 97.7 F 75 18 113/78 100 02/07/18 12:03 97.7 F 75 18 113/78 Intake and Output 02/07/18 02/08/18 02/08/18 22:59 06:59 14:59 Intake Total 268 360 Output Total 600 400 Balance -332 -40 Intake: IV 28 PITOCin/NS 30 UNIT/500ML 28 30 units In 500 ml @ 1 MILLIUNITS/MIN 1 mls/hr IV TITR MCKENZIE Rx#:[id number] Oral 240 360 Output: Urine 600 400 Void 600 400 Other: Total, Intake Amount 240 120 Total, Output Amount 600 400 Estimated Blood Loss 100 - Exam Breasts: Present: deferred Cardiovascular: Present: Regular rate Lungs: Present: Clear to auscultation Abdomen: Present: normal appearance, soft Uterus: Present: normal, firm, fundal height below umbilicus Extremities: Present: normal - Labs Labs: Laboratory Tests 02/05/18 02/05/18 02/05/18 17:45 17:45 17:45 WBC 10.6 RBC 4.10 Hgb 12.5 Hct 37.0 MCV 90 MCH 31 MCHC 34 RDW 13.2 Plt Count 191 RPR Nonreactive Blood Type O POSITIVE Antibody Screen Negative 02/08/18 05:25 WBC RBC Hgb 11.4 Hct 34.0 MCV MCH MCHC RDW Plt Count RPR Blood Type Antibody Screen
[2018-02-08] MEDS: PRENATAL VITAMIN PO SCH (09:50)
[2018-02-08] MEDS: FEOSOL PO SCH ×2 (10:12→22:49)
--- NOTE | 2018-02-08 14:26 | Discharge Summary ---
Providers - Providers Date of Admission: 02/05/18 14:10 Date of discharge: 02/09/18 Attending physician: JENNI HERRERA Primary care physician: JENNI HERRERA Hospitalization Reason for admission: induction of labor, rupture of membranes, IUP at term Delivery: Episiotomy: none Laceration: none Other procedures: none complications: none Discharge diagnosis: IUP at term delivered baby: male Hospital course: Unremarkable. Condition at discharge: Good Disposition: DC-01 TO HOME OR SELFCARE - Discharge Diagnoses (1) 38 weeks gestation of Status: Resolved (2) (normal spontaneous vaginal delivery) Status: Resolved Plan - Discharge Medications Prescriptions: Ibuprofen [Motrin 600 MG tab] 600 mg PO Q6HR #30 tablet Vit-Fe Fumar-FA [ Vitamin] 1 each PO QDAY #30 tablet - Provider Discharge Summary Activity: routine, no sex for 6 weeks, no heavy lifting 4 weeks, no strenuous exercise Diet: routine Instructions: routine Additional instructions: [] Smoking cessation referral if applicable(refer to patient education folder for contact #) [] Refer to [facility]'s [facility] Booklet Call your doctor immediately for: * Fever > 100.5 * Heavy vaginal bleeding ( >1 pad per hour) * Severe persistent headache * Shortness of breath * Reddened, hot, painful area to leg or breast * Drainage or odor from incision. * Keep incision clean and dry at all times and follow doctor's instructions regarding bathing/showering - Follow up plan Follow up: JENNI HERRERA MD [Primary Care Provider] - 6 Weeks LUCAS CLIFTON CNM [Advanced Practice Nurse] - 6 Weeks
[2018-02-08] MEDS ORDERED: M-M-R II VACCINE SUB-Q ONE (17:18)
[2018-02-09] MEDS: NORCO 5/325 PO PRN ×3 (00:45→14:52)
[2018-02-09] MEDS: MOTRIN PO SCH ×4 (04:55→22:12)
[2018-02-09] MEDS ORDERED: ZOLOFT PO SCH (12:00)
[2018-02-09] MEDS: PRENATAL VITAMIN PO SCH (12:28)
[2018-02-09] MEDS: FEOSOL PO SCH ×2 (12:31→22:13)
[2018-02-09 20:13] VITALS: BP 116/82
== END 2018-02-09 22:55 | disposition home or self-care (01) | DRG 775 ==
LOC: TRG 14:05 → LD 14:10 → OB 02-07 20:10
PROVIDERS: ADMIT Obstetrics & Gynecology; ATTEND Obstetrics & Gynecology
PROC: 10E0XZZ Delivery of Products of Conception, External Approach (ICD-10-PCS; principal; 2018-02-07)
PROC: 3E033VJ Introduction of Other Hormone into Peripheral Vein, Percutaneous Approach (ICD-10-PCS; 2018-02-07)
PROC: 3E0R3BZ Introduction of Anesthetic Agent into Spinal Canal, Percutaneous Approach (ICD-10-PCS; 2018-02-07)
PROC: 00HU33Z Insertion of Infusion Device into Spinal Canal, Percutaneous Approach (ICD-10-PCS; 2018-02-07)
PROC: 3E0234Z Introduction of Serum, Toxoid and Vaccine into Muscle, Percutaneous Approach (ICD-10-PCS; 2018-02-08)
DX: O99.824 Streptococcus B carrier state complicating childbirth (principal); Z3A.38 38 weeks gestation of pregnancy; Z37.0 Single live birth; Z23 Encounter for immunization; Z88.8 Allergy status to other drugs, medicaments and biological substances; O42.02 Full-term premature rupture of membranes, onset of labor within 24 hours of rupture; O69.81X0 Labor and delivery complicated by cord around neck, without compression, not applicable or unspecified; O90.81 Anemia of the puerperium; D64.9 Anemia, unspecified
CPT/HCPCS: 36415; 59200; 85014; 85018; 85027; 86592; 86850; 86900; 86901; 99211; A6250; G0463; J0290; J1200; J2405; J2590; J3010; J7120